=== PATIENT | male | born 1945 | race Caucasian/White ===

== ENCOUNTER 2020-01-11 12:10 | Emergency (ER) | payer MEDICARE, SELFPAY ==
[2020-01-11 12:27] VITALS: BP 123/74; PULSE 111; RESP 18; TEMP 36.6; O2SAT 99
--- NOTE | 2020-01-11 12:51 | PC.NURSE ---
Pt update on wait time, verbalized understanding. No further complaints at this time.
--- NOTE | 2020-01-11 13:18 | ED.GENADULT ---
HPI - General Adult General Chief complaint: Extremity Injury, Lower Stated complaint: Gout Time Seen by Provider: 01/11/20 13:18 Source: patient and RN notes reviewed Mode of arrival: ambulatory Limitations: no limitations History of Present Illness HPI narrative: 74-year-old male presents with complaints of constant pain and swelling with intermittent redness to RT foot for the past 21 days. Tylenol (last on 01/11/20 at approximately midnight), ice, and elevation with some relief. Denies injury. Denies history of CHF, DVT, PE, or gout. Hurts to bear weight. Denies radiating pain. No numbness, tingling, or loss of mobility. Exacerbating factor applying weight. Denies inability to bear weight. Denies drainage or suspect foreign body. Denies fever or chills. Denies large intake of meats, seafood, or alcoholic beverages). The patient reports he have not been diagnosed with COVID-19. The patient reports he is not waiting for the results of a COVID-19 lab test. The patient reports he do not have fever, chills, weakness, or fatigue. The patient reports he do not have a new or worsening cough or shortness of breath. Denies chest pain. The patient reports he do not have any rhinorrhea, congestion, loss of taste, sore throat, nausea, vomiting, abdominal pain, and diarrhea. Tolerating po intake well. Denies recent traveling. Denies concerns for COVID-19 or exposures been home with limited outdoor exposure except for essential household needs and return home. At this time, patient is not suspected of having COVID-19. Some parts of this dictation were generated by voice recognition software and may contain typographical and/or grammatical inaccuracies. Related Data Home Medications Medication Instructions Recorded Confirmed aspirin [Adult Low Dose Aspirin] 81 mg PO DAILY 01/11/20 01/11/20 atorvastatin [Lipitor] 40 mg PO DAILY 01/11/20 01/11/20 cholecalciferol (vitamin D3) 50 mcg PO DAILY 01/11/20 01/11/20 cyanocobalamin (vitamin B-12) 100 mcg PO DAILY 01/11/20 01/11/20 doxycycline monohydrate 100 mg PO BID 01/11/20 01/11/20 glimepiride [Amaryl] 4 mg PO DAILY 01/11/20 01/11/20 losartan 25 mg PO DAILY 01/11/20 01/11/20 omeprazole [Prilosec] 20 mg PO DAILY 01/11/20 01/11/20 silodosin 4 mg PO DAILY 01/11/20 01/11/20 Allergies Allergy/AdvReac Type Severity Reaction Status Date / Time decongestants AdvReac Unknown Uncoded 05/17/14 15:06 Review of Systems Review of Systems: Narrative: CONSTITUTIONAL: Denies fever, chills, sweats. EYES: Denies visual changes, redness, discharge. ENT: Denies rhinorrhea, congestion, sore throat, otalgia. CARDIOVASCULAR: Denies chest pain, palpitations, edema. RESPIRATORY: Denies dyspnea, wheezing, cough. GASTROINTESTINAL: Denies abdominal pain, nausea, vomiting, diarrhea. GENITOURINARY: Denies dysuria, hematuria, abnormal discharge. SKIN: Denies rash or itching. MUSCULOSKELETAL: Denies acute back pain or myalgia. Complains of constant pain and swelling with intermittent redness to RT foot. Denies drainage. NEUROLOGIC: Denies numbness or focal weakness. PSYCHIATRIC: Denies anxiety or depression. All systems reviewed & are unremarkable except as noted in HPI and below PMFSH Past Medical History Medical History (Updated 01/11/20 @ 20:00 by COURTNEY Melendez) Diabetes Dry eyes History of gastroesophageal reflux (GERD) Hypercholesteremia Hypertension Rosacea Surgical History Surgical History (Updated 01/11/20 @ 22:17 by COURTNEY Melendez) No significant past surgical history Family History Family History (Updated 01/11/20 @ 22:18 by COURTNEY Melendez) Father Hypertension Mother Cerebrovascular accident Alzheimers disease Social History Social History (Updated 01/11/20 @ 22:20 by COURTNEY Melendez) Smoking status: Never smoker Tobacco type: cigarettes Second hand tobacco smoke exposure: No Alcohol intake: never S
== END 2020-01-11 13:45 | disposition home or self-care (01) ==
PROVIDERS: Emergency Provider Nurse Practitioner Family; PCP Internal Medicine Endocrinology, Diabetes & Metabolism
DX: M25.571 Pain in right ankle and joints of right foot (principal); E11.9 Type 2 diabetes mellitus without complications; K21.9 Gastro-esophageal reflux disease without esophagitis; E78.00 Pure hypercholesterolemia, unspecified; I10 Essential (primary) hypertension; Z79.82 Long term (current) use of aspirin
CPT/HCPCS: 99213; G0463